=== PATIENT | male | born 1960 | race Caucasian/White ===

== ENCOUNTER 2018-08-02 07:15 | Inpatient (IN) | payer OTHER ==
[~2018-08-02] VITALS: Ht 172.7 cm; Wt 111.1 kg
[2018-08-02] MEDS ORDERED: PROSAC PO (08:31)
[2018-08-02] MEDS ORDERED: GABAPENTIN800 MG PO (08:32)
[2018-08-02] MEDS ORDERED: TRAMADOL HCL50 MG PO (08:32)
[2018-08-02] MEDS ORDERED: LISINOPRIL10 MG PO (08:32)
[2018-08-02] MEDS ORDERED: RESTORIL30 M1 PO (08:33)
[2018-08-02] MEDS ORDERED: CLONAZEPAM0.5 MG PO (08:33)
[2018-08-02] MEDS ORDERED: RANITIDINE HCL300 M1 PO (08:34)
[2018-08-10] MEDS ORDERED: PROZAC20 MG PO (08:36)
== END 2018-08-12 20:43 | disposition home or self-care (01) | DRG 658 ==
LOC: O/R 08-10 07:01 → SURG 08-10 18:01 → SURH 08-13 07:15
PROVIDERS: Urology
PROC: 0TT04ZZ Resection of Right Kidney, Percutaneous Endoscopic Approach (ICD-10-PCS; principal; 2018-08-10 09:00)
DX: C64.1 Malignant neoplasm of right kidney, except renal pelvis (principal)